=== PATIENT | male | born 1965 | race Caucasian/White ===

== ENCOUNTER 2018-08-02 09:21 | Inpatient (IN) | payer BC ==
[~2018-08-02] VITALS: Ht 177.8 cm; Wt 90.4 kg
[~2018-08-02 09:21] MED LIST: ASPI81CH43 PO; ATOR10TA52 PO; LOSA25TA40 PO; PANT1INJ3 PO; UMEC1AER IN
[2018-08-02] MEDS ORDERED: LIDOCAINE 2% (LOCAL ANESTH.) PF 5ml SDV ONE (09:25)
[2018-08-02] MEDS ORDERED: IODIXANOL 320MG/ML 100ML BTL IV ONE (09:25)
[2018-08-02] MEDS ORDERED: LOSARTAN POTASSIUM 25 MG TAB PO SCH (10:00)
[2018-08-02] MEDS ORDERED: ANGIOMAX 250 MG VIAL IV ONE (10:08)
[2018-08-02] MEDS ORDERED: VERAPAMIL 2.5MG/ML INJ 2ML VIAL IV ONE (10:08)
[2018-08-02] MEDS ORDERED: EPTIFIBATIDE INJ (2MG/ML) 10ML VIAL IV ONE (10:09)
[2018-08-02] MEDS ORDERED: MIDAZOLAM HCL 1MG/1ML-2 ML VIAL ONE (10:09)
[2018-08-02] MEDS ORDERED: fentaNYL CITRATE 100 MCG/2 ML VL ONE (10:09)
[2018-08-02] MEDS ORDERED: SODIUM CHL 0.9% 50 ML ONE (10:09)
[2018-08-02] MEDS ORDERED: PRASUGREL HCL 10 MG TAB ONE (10:41)
[2018-08-02] MEDS ORDERED: ASPirin 325 MG TAB ONE (10:42)
[2018-08-02] MEDS ORDERED: MORPHINE SULF INJ 2 MG/ML SYRINGE 1ML IV PRN (11:30)
[2018-08-02] MEDS ORDERED: ACETAMINOPHEN 500 MG TAB PO PRN (11:30)
[2018-08-02] MEDS ORDERED: ONDANSETRON HCL 4 MG/2 ML VIAL IV PRN (11:30)
[2018-08-02] MEDS ORDERED: NITROGLYCERIN 0.4 MG SL TAB SL PRN (11:30)
[2018-08-02] MEDS ORDERED: HYDROcodone-ACET 5/325MG TAB PO PRN (11:30)
[2018-08-02] MEDS ORDERED: PANT40T PO (11:49)
[2018-08-02 17:18] VITALS: BP 116/70
[2018-08-02 22:00] VITALS: BP 116/56
[2018-08-02] MEDS ORDERED: ATORVASTATIN 20 MG TAB PO SCH (22:00)
[2018-08-02] MEDS ORDERED: CLOPIDOGREL 300 MG TAB PO ONE (23:00)
[2018-08-03 05:26] VITALS: BP 128/66
[2018-08-03] MEDS ORDERED: CLOP75TA28 PO (05:53)
[2018-08-03 09:00] VITALS: BP 123/78
[2018-08-03] MEDS ORDERED: PATIENTS OWN MEDICATION (Atorvastatin Calcium 1 TAB) PO SCH (10:00)
[2018-08-03] MEDS ORDERED: ASPirin 81 mg TAB PO SCH (10:00)
[2018-08-03] MEDS ORDERED: PANTOPRAZOLE 40 MG TAB PO SCH (10:00)
[2018-08-03] MEDS ORDERED: CLOPIDOGREL BISULFATE 75 MG TAB PO SCH (10:00)
== END 2018-08-03 09:30 | disposition home or self-care (01) | DRG 247 ==
LOC: CATH 09:21 → WEST WING 16:00 → TELE-WESTW 23:55
PROVIDERS: ADMIT Internal Medicine; ATTEND Internal Medicine
PROC: 027034Z Dilation of Coronary Artery, One Artery with Drug-eluting Intraluminal Device, Percutaneous Approach (ICD-10-PCS; principal; 2018-08-02)
PROC: 02C03ZZ Extirpation of Matter from Coronary Artery, One Artery, Percutaneous Approach (ICD-10-PCS; 2018-08-02)
PROC: 4A023N7 Measurement of Cardiac Sampling and Pressure, Left Heart, Percutaneous Approach (ICD-10-PCS; 2018-08-02)
PROC: B2111ZZ Fluoroscopy of Multiple Coronary Arteries using Low Osmolar Contrast (ICD-10-PCS; 2018-08-02)
DX: I25.119 Atherosclerotic heart disease of native coronary artery with unspecified angina pectoris (principal); I10 Essential (primary) hypertension; E78.5 Hyperlipidemia, unspecified; J45.909 Unspecified asthma, uncomplicated; F17.210 Nicotine dependence, cigarettes, uncomplicated; Z79.899 Other long term (current) drug therapy; Z95.5 Presence of coronary angioplasty implant and graft; Z82.49 Family history of ischemic heart disease and other diseases of the circulatory system
CPT/HCPCS: 92933; 93458; 99152; A6257; C1874; J2001; J2250; Q9967